=== PATIENT | female | born 1990 | race Caucasian/White ===

== ENCOUNTER 2018-04-06 20:59 | Emergency (ER) | payer BC ==
[2018-04-06] MEDS ORDERED: Ketorolac INJ* 60 MG/2 ML VIAL IM ONE (21:52)
[2018-04-06] MEDS ORDERED: Cyclobenzaprine TAB* 10 MG PO ONE (21:52)
--- NOTE | 2018-04-06 21:59 | ED ---
Back Pain - HPI Summary HPI Summary: This patient is a 27 year old F presenting to ED with a chief complaint of lower back pain since 03/30/18. The CC is described as super messed up and has worsened since onset, radiating to the upper back and down the R leg. She heard a pop earlier this evening while trying to get out of bed. The patient rates the pain 6/10 in severity. Symptoms aggravated by deep breaths and sitting up. Symptoms alleviated by nothing. Prior treatment includes an ice pack. Patient denies urinary problems. PMHx of sciatica. - History of Current Complaint Chief Complaint: EDBackInjuryPain Stated Complaint: BACK PAIN Time Seen by Provider: 04/06/18 21:36 Hx Obtained From: Patient Onset/Duration: Sudden Onset, Lasting Weeks, Still Present Onset/Duration: Still Present Timing: Constant, Lasting Weeks Back Pain Location: Is Discrete @ - lower back pain, radiating to the upper back and down the R leg Severity Initially: Moderate Severity Currently: Moderate Pain Intensity: 6 Pain Scale Used: 0-10 Numeric Aggravating Symptom(s): Other - deep breaths and sitting up Alleviating Symptom(s): Nothing - Allergies/Home Medications Allergies/Adverse Reactions: Allergies Allergy/AdvReac Type Severity Reaction Status Date / Time No Known Allergies Allergy Verified 04/06/18 21:06 PMH/Surg Hx/FS Hx/Imm Hx Endocrine/Hematology History: Denies: Hx Diabetes Cardiovascular History: Denies: Hx Hypercholesterolemia, Hx Hypotension Respiratory History: Denies: Hx Chronic Obstructive Pulmonary Disease (COPD) History: Denies: Hx Acute Renal Failure, Hx Benign Prostatic Hyperplasia Sensory History: Reports: Hx Contacts or Glasses Opthamlomology History: Reports: Hx Contacts or Glasses - Surgical History Surgery Procedure, Year, and Place: NONE Infectious Disease History: No Infectious Disease History: Denies: Traveled Outside the [place] in Last 30 Days - Family History Known Family History: Negative: Diabetes, Respiratory Disease - Social History Alcohol Use: Occasionally Substance Use Type: Reports: None Smoking Status (MU): Never Smoked Tobacco Review of Systems Positive: no symptoms reported Positive: Other - lower back pain, radiating to the upper back and down the R leg All Other Systems Reviewed And Are Negative: Yes Physical Exam - Summary Physical Exam Summary: VITAL SIGNS: Reviewed. GENERAL: Patient is a well-developed and nourished FEMALE who is lying comfortable in the stretcher. Patient is not in any acute respiratory distress. HEAD AND FACE: No signs of trauma. No ecchymosis, hematomas or skull depressions. No sinus tenderness. EYES: PERRLA, EOMI x 2, No injected conjunctiva, no nystagmus. EARS: Hearing grossly intact. Ear canals and tympanic membranes are within normal limits. MOUTH: Oropharynx within normal limits. NECK: Supple, trachea is midline, no adenopathy, no JVD, no carotid bruit, no c- spine tenderness, neck with full ROM. CHEST: Symmetric, no tenderness at palpation LUNGS: Clear to auscultation bilaterally. No wheezing or crackles. CVS: Regular rate and rhythm, S1 and S2 present, no murmurs or gallops appreciated. ABDOMEN: Soft, non-tender. No signs of distention. No rebound no guarding, and no masses palpated. Bowel sounds are normal. EXTREMITIES: FROM in all major joints, no edema, no cyanosis or clubbing. NEURO: Alert and oriented x 3. No acute neurological deficits. Speech is normal and follows commands. SKIN: Dry and warm Triage Information Reviewed: Yes Vital Signs On Initial Exam: Initial Vitals Temp Pulse Resp BP Pulse Ox 98.1 F 105 18 137/88 98 04/06/18 21:04 04/06/18 21:04 04/06/18 21:04 04/06/18 21:04 04/06/18 21:04 Vital Signs Reviewed: Yes Diagnostics - Vital Signs Vital Signs Temp Pulse Resp BP Pulse Ox 04/06/18 21:04 98.1 F 105 18 137/88 98 - Laboratory Lab Statement: Any lab studies that have been ordered have been reviewed, and results considered in the medical decision making process. Back Pain Course/Dx - Course Assessment/Plan: This patient is a 27 year old F presenting to ED with a chief complaint of lower back pain since 03/30/18. In the ED course, the patient was given Toradol and Flexiril. Pt feels better with medication. She will be discharged with an rx of flexiril and will f/u with pcp in 2 days. - Diagnoses Provider Diagnoses: Back pain Discharge - Sign-Out/Discharge Documenting (check all that apply): Patient Departure - Discharge Plan Condition: Stable Disposition: HOME Prescriptions: Cyclobenzaprine TAB* [Flexeril 10 MG TAB*] 10 mg PO TID PRN #20 tab PRN Reason: Spasms - Back Ibuprofen TAB* [Motrin TAB* 800 MG] 800 mg PO Q6H PRN #30 tab PRN Reason: Pain Patient Education Materials: Low Back Strain (ED) Referrals: [facility] [place] [facility] REFERRAL [Outside] - 2 Days Additional Instructions: RETURN TO THE EMERGENCY DEPARTMENT FOR CHANGING OR WORSENING SYMPTOMS - Attestation Statements Document Initiated by Scribe: Yes Documenting Scribe: Corey Miller Provider For Whom Scribe is Documenting (Include Credential): Najma Ronquillo MD Scribe Attestation: Corey Ramirez, scribed for Najma Ronquillo MD on 04/06/18 at [id number].
[2018-04-06 23:56] VITALS: BP 114/53
== END 2018-04-06 23:56 | disposition home or self-care (01) ==
LOC: ED 20:59
DX: M54.5 Low back pain (principal); M54.9 Dorsalgia, unspecified
CPT/HCPCS: 96372; 99282; A9270-GY; J1885